=== PATIENT | male | born 1995 | race Caucasian/White ===

== ENCOUNTER 2017-10-29 16:08 | Emergency (ER) | payer OTHER ==
[2017-10-29 16:13] VITALS: RESP 16; TEMP 98.6; O2SAT 98
--- NOTE | 2017-10-29 16:36 | EDPHY ---
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 He ran to the bathroom attempted to vomit, unsuccessfully. He was able to then walked over to [facility] or his initially evaluated was asymptomatic. He is to urgent care they recommend he go to the ER for evaluation. The time I evaluated the states that he is by enlarged asymptomatic exception of feeling "little foggy ". At no point did he experience chest pain, antecedent headache, syncopal episode , palpitations. He did eat breakfast this morning. No prior history of similar. No seizure or loss of consciousness. No incontinence. No family history of neurologic disease. No recent illness. No nuchal rigidity. No head or neck trauma or manipulation. No visual field cuts. No history of migraines PRIMARY CARE PROVIDER: [facility] REVIEW OF SYSTEMS: A ten point review of systems was performed and is negative with the exception of the items mentioned in the HPI PAST MEDICAL & SURGICAL HISTORY: Appendectomy SOCIAL HISTORY: Daily marijuana use FAMILY HISTORY: No family history of neurologic disease PHYSICAL EXAM (Prior to examination, patient consented to physical exam, hands were washed and my usual and customary physical exam procedures followed) 1) GENERAL: Well-developed, well-nourished, alert and oriented. Appears to be in no acute distress. 2) HEAD: Normocephalic, atraumatic 3) HEENT: Pupils equal, round, reactive to light bilaterally. Sclera anicteric. Funduscopic examination is grossly unremarkable. Visual acuities obtained, see nursing notes. Nasopharynx, oropharynx, clear, no lesions. Ears bilaterally with normal tympanic membranes. 4) NECK: Full range of motion, no meningeal signs. 5) LUNGS: Clear auscultation bilaterally, no wheezes, no rhonchi, no retractions. 6) HEART: Regular rate and rhythm, no murmur, no heave, no gallop. 7) ABDOMEN: No guarding, no rebound, no focal tenderness, negative McBurney's, negative Junior's, negative Rovsing's, negative peritoneal sign, 8) MUSCULOSKELETAL: Moving all extremities, no focal areas of tenderness, no obvious trauma. No peripheral edema or discoloration. 9) BACK: No CVA tenderness, no midline vertebral tenderness, no fluctuance, no step-off, no obvious trauma, no visual or palpable abnormality. 10) SKIN: No rash, no petechiae. 11) Psychiatric: Patient is oriented X 3, there is no agitation. 12) NEURO: Awake, alert, and oriented to person, place and time. Answers questions appropriately. There were no obvious focal neurologic abnormalities. No cerebellar dysfunction. Cranial nerves 2 through to 12 intact. Normal steady gait. Upper and lower extremities bilaterally with strength 5 / 5, reflexes 2+. DIFFERENTIAL DIAGNOSIS: In no particular include but limited to seizure, vasovagal syncope, neurologic disease, anxiety (Sharifa,Irving Neha) Constitutional: Initial Vital Signs Temperature (C) 37 C 10/29/17 16:10 Heart Rate 77 10/29/17 16:10 Respiratory Rate 16 10/29/17 16:10 Blood Pressure 134/78 H 10/29/17 16:10 O2 Sat (%) 98 10/29/17 16:10 O2 Delivery Mode Room Air Allergies/Adverse Reactions: No Known Allergies Allergy (Verified 10/29/17 16:10) Home Medications: Medication Instructions Recorded NK [No Known Home Meds] 12/11/15 Medical Decision Making ED Course/Re-evaluation: I have discussed this case with Ankush Cespedes and reviewed the laboratory data EKG data and evaluated the patient. This appears to be most likely vasovagal episode. I do not believe this is neurogenic type syncope or cardiogenic type syncope. (Christopher Rubio) 4:36 p.m.: Care of patient under supervision of secondary supervising physician Dr Rubio with whom I discussed case. 6:00 p.m.: Patient has been re-evaluated with serial examinations. He remains with a nonfocal neurologic exam. We discussed possible etiologies for his earlier symptoms including, but not limited to, vasovagal syncope. Doubt seizure. Doubt ophthalmic etiology. Doubt CVA. I do not think that imaging indicated in the presence of a nonfocal neurologic exam. I have recommended follow-up and have given the name of neurologist on-call. All questions and concerns addressed by myself. Usual and customary discharge precautions and instructions provided. He feels comfortable being discharged. (Irving Skaggs) - Data Points Laboratory Results: Laboratory Results 10/29/17 17:00 10/29/17 17:00 10/29/17 10/29/17 17:00 17:00 WBC 10.39 10^3/uL H 10^3/uL (3.80-9.50) RBC 5.73 10^6/uL 10^6/uL (4.40-6.38) Hgb 17.3 g/dL g/dL (13.7-17.5) Hct 47.4 % % (40.0-51.0) MCV 82.7 fL fL (81.5-99.8) MCH 30.2 pg pg (27.9-34.1) MCHC 36.5 g/dL g/dL (32.4-36.7) RDW 12.1 % % (11.5-15.2) Plt Count 244 10^3/uL 10^3/uL (150-400) MPV 9.1 fL fL (8.7-11.7) Neut % (Auto) 80.2 % H % (39.3-74.2) Lymph % (Auto) 14.0 % L % (15.0-45.0) Piatt % (Auto) 4.8 % % (4.5-13.0) Eos % (Auto) 0.5 % L % (0.6-7.6) Baso % (Auto) 0.3 % % (0.3-1.7) Nucleat RBC Rel Count 0.0 % % (0.0-0.2) Absolute Neuts (auto) 8.34 10^3/uL H 10^3/uL (1.70-6.50) Absolute Lymphs (auto) 1.45 10^3/uL 10^3/uL (1.00-3.00) Absolute Monos (auto) 0.50 10^3/uL 10^3/uL (0.30-0.80) Absolute Eos (auto) 0.05 10^3/uL 10^3/uL (0.03-0.40) Absolute Basos (auto) 0.03 10^3/uL 10^3/uL (0.02-0.10) Absolute Nucleated RBC 0.00 10^3/uL 10^3/uL (0-0.01) Immature Gran % 0.2 % % (0.0-1.1) Immature Gran # 0.02 10^3/uL 10^3/uL (0.00-0.10) Sodium 143 mEq/L mEq/L (134-144) Potassium 4.4 mEq/L mEq/L (3.5-5.2) Chloride 102 mEq/L mEq/L (97-110) Carbon Dioxide 30 mEq/l mEq/l (22-31) Anion Gap 11 mEq/L mEq/L (8-16) BUN 11 mg/dL mg/dL (7-23) Creatinine 0.9 mg/dL mg/dL (0.7-1.3) Estimated GFR > 60 Glucose 103 mg/dL H mg/dL (70-100) Calcium 9.9 mg/dL mg/dL (8.5-10.4) Departure - Departure Disposition: Home, Routine, Self-Care Clinical Impression: Near syncope Condition: Good Instructions: Near Syncope (ED) Additional Instructions: Return to the ER if you develop return of symptoms, if you develop headaches, nausea, vomiting, fevers or any other symptoms that concern you. Referrals: Gaurav Valenzuela DO [Doctor of Osteopathy] - 2-3 days, call for appt.
--- NOTE | 2017-10-29 16:58 | CPEKG ---
Heart Rate: 69 RR Interval: 870 P-R Interval: 128 QRSD Interval: 98 QT Interval: 380 QTC Interval: 407 P Bingham: 50 QRS Bingham: 41 T Wave Bingham: 23 EKG Severity - NORMAL ECG - EKG Impression: SINUS RHYTHM Electronically Signed By: Christopher Rubio 29-Oct-2017 20:41:27
[2017-10-29 17:11] LABS: % IMMATURE GRANULYOCYTES 0.2 % (0.0-1.1); ABSOLUTE IMMATURE GRANULOCYTES 0.02 10^3/uL (0.00-0.10); ADD DIFF? NO; ADD MORPH? NO; ADD SCAN? NO; ATYPICAL LYMPHOCYTE FLAG 0 (0-99); FRAGMENT RBC FLAG 0 (0-99); HEMATOCRIT 47.4 % (40.0-51.0); HEMOGLOBIN 17.3 g/dL (13.7-17.5); LEFT SHIFT FLG 0 (0-99); LIPEMIA HEMOLYSIS FLAG 90 (0-99); MEAN CELL HEMOGLOBIN 30.2 pg (27.9-34.1); MEAN CELL HEMOGLOBIN CONCENTR. 36.5 g/dL (32.4-36.7); MEAN CELL VOLUME 82.7 fL (81.5-99.8); MEAN PLATELET VOLUME 9.1 fL (8.7-11.7); PLATELET CLUMPS FLAG 10 (0-99); PLATELET COUNT 244 10^3/uL (150-400); RED BLOOD CELL COUNT 5.73 10^6/uL (4.40-6.38); RED CELL DISTRIBUTION WIDTH 12.1 % (11.5-15.2)
[2017-10-29 17:25] LABS: ANION GAP 11 mEq/L (8-16); CALCIUM 9.9 mg/dL (8.5-10.4); CARBON DIOXIDE 30 mEq/l (22-31); CHLORIDE 102 mEq/L (97-110); CREATININE 0.9 mg/dL (0.7-1.3); GLOMERULAR FILTRATION RATE > 60; GLUCOSE 103 mg/dL (70-100); POTASSIUM 4.4 mEq/L (3.5-5.2); SODIUM 143 mEq/L (134-144)
[2017-10-29 18:14] VITALS: BP 119/74; PULSE 68
== END 2017-10-29 18:14 | disposition home or self-care (01) ==
DX: R55 Syncope and collapse (principal)

== ENCOUNTER 2017-11-03 12:42 | Emergency (ER) | payer OTHER ==
[2017-11-03] MEDS ORDERED: METOCLOPRAMIDE 10 MG/2 ML VIAL IVP ONE (14:57)
[2017-11-03] MEDS ORDERED: DEXAMETHASONE 10 MG/ML VIAL IVP ONE (14:57)
[2017-11-03] MEDS ORDERED: NS 1,000 ML IV ONE (14:57)
--- NOTE | 2017-11-03 15:00 | EDPHY ---
H & P Stated Complaint: SEEN SUNDAY, RETURNS FOR WORSENING SYMPTOMS Time Seen by Provider: 11/03/17 14:43 HPI/ROS: CHIEF COMPLAINT: Headache, vision changes HISTORY OF PRESENT ILLNESS: Patient is a 22-year-old healthy man who comes to the emergency department complaining of a persistent headache and vision changes. He was seen on Sunday after an episode in class. it began as a headache and vision changes and paresthesias in his little fingers. His symptoms resolved by the time he got the ER and he was worked up for possible syncope. He followed up with a neurologist Dr. Valenzuela during the week who did not find any abnormalities on exam. The patient states that his headache has persisted all week long. He denies any trauma. No fever or infection p.o. sinus symptoms. He Does occasionally get migraines but states that this does not feel similar. He no longer is having any paresthesias. His vision did seem to improve throughout the week but is again having problems today he describes it as blurriness. Not unilateral. No darkness. No double vision. REVIEW OF SYSTEMS: Constitutional: denies: chills, fever, recent illness, recent injury EENTM: See HPI denies: double vision, nose congestion Respiratory: denies: cough, shortness of breath Cardiac: denies: chest pain, irregular heart rate, lightheadedness, palpitations Gastrointestinal/Abdominal: denies: abdominal pain, diarrhea, nausea, vomiting, blood streaked stools Genitourinary: denies: dysuria, frequency, hematuria, pain Musculoskeletal: denies: joint pain, muscle pain Skin: denies: lesions, rash, jaundice, bruising Neurological: See HPI denies: numbness, paresthesia, tingling, dizziness, weakness Hematologic/Lymphatic: denies: blood clots, easy bleeding, easy bruising Immunologic/allergic: denies: HIV/AIDS, transplant EXAM: GENERAL: Well-appearing, well-nourished and in no acute distress. HEAD: Atraumatic, normocephalic. EYES: Pupils equal round and reactive to light, extraocular movements intact, sclera anicteric, conjunctiva are normal. Normal retinal exam ENT: TMs normal, nares patent, oropharynx clear without exudates. Moist mucous membranes. NECK: Normal range of motion, supple without lymphadenopathy or JVD. LUNGS: Breath sounds clear to auscultation bilaterally and equal. No wheezes rales or rhonchi. HEART: Regular rate and rhythm without murmurs, rubs or gallops. ABDOMEN: Soft, nontender, normoactive bowel sounds. No guarding, no rebound. No masses appreciated. BACK: No CVA tenderness, no spinal tenderness, step-offs or deformities EXTREMITIES: Normal range of motion, no pitting or edema. No clubbing or cyanosis. NEUROLOGICAL: Cranial nerves II through XII grossly intact. Normal speech, normal gait. 5/5 strength, normal movement in all extremities, normal sensation , normal reflexes, PSYCH: Normal mood, normal affect. SKIN: Warm, dry, normal turgor, no visible rashes or lesions. Source: Patient - Personal History Current Tetanus Diphtheria and Acellular Pertussis (TDAP): Yes Tetanus Vaccine Date: < 10 YEARS - Medical/Surgical History Hx Asthma: No Hx Chronic Respiratory Disease: No Hx Diabetes: No Hx Cardiac Disease: No Hx Renal Disease: No Hx Cirrhosis: No Hx Alcoholism: No Hx HIV/AIDS: No Hx Splenectomy or Spleen Trauma: No Other PMH: appendectomy, migraines - Family History Significant Family History: No pertinent family hx - Social History Smoking Status: Never smoked Alcohol Use: Sober Constitutional: Initial Vital Signs Temperature (C) 37.3 C 11/03/17 12:59 Heart Rate 69 11/03/17 12:59 Respiratory Rate 18 11/03/17 12:59 Blood Pressure 130/75 H 11/03/17 12:59 O2 Sat (%) 98 11/03/17 12:59 O2 Delivery Mode Room Air Allergies/Adverse Reactions: No Known Allergies Allergy (Verified 11/03/17 13:02) Home Medications: Medication Instructions Recorded NK [No Known Home Meds] 12/11/15 Medical Decision Making - Diagnostics Imaging: Discussed imaging studies w/ veneer measurer Radiologist ED Course/Re-evaluation: Vision checked and is essentially baseline. He does not wear glasses or contacts. 5:20 p.m. the patient states his headache is somewhat improved. No vision symptoms currently. His imaging studies are reassuring. We discussed further options. He would like to go home. He has already seen Neurology and has a follow-up appointment this week with Cardiology. He denies having any palpitations chest pain shortness of breath cetera. I will send him to Ophthalmology as well considering that this may be vision issues causing his headaches. He is happy with this and declines further workup or testing. We discussed indications for returning to the hospital. Differential Diagnosis: Partial list of the Differential diagnosis considered include but were not limited to; migraine, dissection, aneurysm, dysconjugate gaze, and although unlikely based on the history and physical exam, I also considered hemorrhage, iritis, retinal detachment, concussion, meningitis. I discussed these differential diagnoses and the plan with the patient as well as the usual and expected course. The patient understands that the diagnosis is provisional and that in medicine we are not always correct and that further workup is often warranted. Usual and customary warnings were given. All of the patient's questions were answered. The patient was instructed to return to the emergency department should the symptoms at all worsen or return, otherwise to followup with the physician as we discussed. - Data Points Laboratory Results: Laboratory Results 11/03/17 15:22 11/03/17 15:22 Medications Given: Discontinued Medications Dexamethasone (Decadron Injection) 10 mg IVP EDNOW ONE Stop: 11/03/17 14:58 Last Admin: 11/03/17 15:22 Dose: 10 mg Sodium Chloride (Ns) 1,000 mls @ 0 mls/hr IV ONCE ONE; Wide Open PRN Reason: Protocol Stop: 11/03/17 14:58 Last Admin: 11/03/17 15:22 Dose: 1,000 mls Metoclopramide HCl (Reglan Injection) 10 mg IVP EDNOW ONE Stop: 11/03/17 14:58 Last Admin: 11/03/17 15:22 Dose: 10 mg Departure - Departure Disposition: Home, Routine, Self-Care Clinical Impression: Blurry vision, bilateral Headache Qualifiers: Headache type: unspecified Headache chronicity pattern: acute headache Intractability: not intractable Qualified Code(s): R51 - Headache Condition: Fair Instructions: Acute Headache (ED), Blurred Vision (ED) Referrals: SURJIT CLARK MD [Other] - As per Instructions Tee Stacy MD [Medical Doctor] - As per Instructions
[2017-11-03 15:28] LABS: % IMMATURE GRANULYOCYTES 0.4 % (0.0-1.1); ABSOLUTE IMMATURE GRANULOCYTES 0.03 10^3/uL (0.00-0.10); ADD DIFF? NO; ADD MORPH? NO; ADD SCAN? NO; ATYPICAL LYMPHOCYTE FLAG 0 (0-99); FRAGMENT RBC FLAG 0 (0-99); HEMATOCRIT 51.2 % (40.0-51.0); HEMOGLOBIN 18.5 g/dL (13.7-17.5); LEFT SHIFT FLG 0 (0-99); LIPEMIA HEMOLYSIS FLAG 90 (0-99); MEAN CELL HEMOGLOBIN CONCENTR. 36.1 g/dL (32.4-36.7); MEAN CELL VOLUME 83.1 fL (81.5-99.8); MEAN PLATELET VOLUME 9.1 fL (8.7-11.7); PLATELET CLUMPS FLAG 0 (0-99); PLATELET COUNT 278 10^3/uL (150-400); RED BLOOD CELL COUNT 6.16 10^6/uL (4.40-6.38); RED CELL DISTRIBUTION WIDTH 12.4 % (11.5-15.2)
[2017-11-03 15:41] LABS: ANION GAP 18 mEq/L (8-16); CALCIUM 10.4 mg/dL (8.5-10.4); CARBON DIOXIDE 28 mEq/l (22-31); CHLORIDE 101 mEq/L (97-110); CREATININE 0.9 mg/dL (0.7-1.3); GLOMERULAR FILTRATION RATE > 60; GLUCOSE 87 mg/dL (70-100); POTASSIUM 4.4 mEq/L (3.5-5.2); SODIUM 147 mEq/L (134-144)
[2017-11-03] MEDS ORDERED: IOPAMIDOL (ISOVUE 370) 100 ML BTL IV ONE (15:59)
[2017-11-03 16:52] VITALS: TEMP 98.8; O2SAT 95
[2017-11-03 17:35] VITALS: BP 131/68; PULSE 72; RESP 18
== END 2017-11-03 17:35 | disposition home or self-care (01) ==
DX: R51 Headache (principal); H53.8 Other visual disturbances; E86.9 Volume depletion, unspecified
CPT/HCPCS: 96374; J1100; J2765; Q9967